=== PATIENT | male | born 1960 | race Caucasian/White ===

== ENCOUNTER 2018-03-13 12:01 | Emergency (ER) | payer OTHER ==
[2018-03-13] MEDS: DIPHTH/TET/ACEL PERTUSS (ADULT) 0.5 ML VIAL IM* (12:31)
[2018-03-13] MEDS: AMOXICILLIN/CLAV 875 MG TAB PO (12:31)
[2018-03-13] MEDS: LIDOCAINE 1%/EPI 30 ML INJ INJ (12:31)
== END 2018-03-13 15:18 | disposition home or self-care (01) ==
LOC: FTE 12:01
DX: S61.412A Laceration without foreign body of left hand, initial encounter (principal); F17.210 Nicotine dependence, cigarettes, uncomplicated; W54.0XXA Bitten by dog, initial encounter; Y92.9 Unspecified place or not applicable; Z23 Encounter for immunization
CPT/HCPCS: 12002; 73130-LT; 90471; 90715; 99284-25